=== PATIENT | female | born 1990 | race Caucasian/White ===

== ENCOUNTER 2022-06-07 08:05 | Outpatient (CLI) | payer OTHER, SELFPAY ==
[2022-06-07 20:09] LABS: Alanine Aminotransferase 18 U/L (6-35); Albumin Level 4.7 g/dL (3.5-5.1); Alkaline Phosphatase 47 U/L (38-126); Anion Gap 6 mmol/L (8-16); Aspartate Amino Transferase 30 U/L (14-36); Bilirubin,Total 0.8 mg/dL (0.2-1.3); Blood Urea Nitrogen 17 mg/dL (7-17); Calcium 8.9 mg/dL (8.4-10.2); Carbon Dioxide 30 mmol/L (22-30); Chloride 99 mmol/L (98-107); Estimated Glomerular Filt Rate > 60; Glucose 86 mg/dL (65-110); Sodium 135 mmol/L (137-145)
[2022-06-07 20:41] LABS: Basophils Absolute Auto 0.1 K/mm3 (0.0-0.1); Basophils Percent Auto 0.8 % (0.2-1.2); Eosinophils Percent Auto 0.6 % (0-4.4); Hematocrit 41.9 % (37.0-47.0); Hemoglobin 13.5 g/dL (12.0-15.0); Immature Granulocyte Absolute 0.02 K/mm3 (0.00-0.031); Immature Granulocyte Percent A 0.3 % (0-0.5); Lymphocytes Absolute Auto 2.28 K/mm3 (0.9-3.2); Mean Corpuscular HGB Conc 32.2 g/dl (32-36); Mean Corpuscular Hemoglobin 32.1 pg (26-34); Mean Corpuscular Volume 99.8 fl (80-100); Mean Platelet Volume 11.9 fl (7.4-10.4); Monocytes Absolute Auto 0.6 K/mm3 (0.1-0.6); Monocytes Percent Auto 9.5 % (2.6-8.5); Neutrophils Absolute Auto 3.3 K/mm3 (1.3-6.7); Neutrophils Percent Auto 52.8 % (45.5-73.1); Platelet Count Result 193 k/mm3 (150-375); Red Cell Distribution Width 12.4 % (11.5-14.5); White Blood Count 6.3 K/mm3 (4.5-10.0)
== END 2022-06-07 08:06 | disposition home or self-care (01) ==
LOC: ANHGOSHLAB 08:06
PROVIDERS: PCP Family Medicine; Visit Provider Family Medicine
DX: R53.83 Other fatigue (principal)
CPT/HCPCS: 36415; 80053; 84443; 85025

== ENCOUNTER 2024-07-16 07:56 | Outpatient (CLI) | payer BC, SELFPAY ==
--- OUTSIDE RECORDS SUMMARY | 2024-07-16 08:02 | XMS_ITS | Clinical Summary ---
Author Organization [facility] on Address [address] [place] [address] Care Team Providers Care Process Engineering Technician Name Role Phone Iain Braga MD Primary Care Provider [phone] Medications sertraline (ZOLOFT) 50 mg tablet Take 50 mg by mouth daily at bedtime. 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 Gender Identity Not on file Sexual Orientation Not on file Last Filed Vital Signs Vital Sign Reading Time Taken Comments Blood Pressure 118/79 05/22/2020 12:08 PM OPTICAL SYSTEMS ENGINEER Pulse 59 05/22/2020 12:08 PM OPTICAL SYSTEMS ENGINEER Temperature 36.8 C (98.3 F) 05/22/2020 12:08 PM OPTICAL SYSTEMS ENGINEER Respiratory Rate 18 05/22/2020 12:08 PM OPTICAL SYSTEMS ENGINEER Oxygen Saturation 90% 05/22/2020 12:08 PM OPTICAL SYSTEMS ENGINEER Inhaled Oxygen Concentration - - Weight 56.7 kg (125 lb) 05/22/2020 12:08 PM OPTICAL SYSTEMS ENGINEER Height 154.9 cm (5' 1 ) 05/22/2020 12:08 PM OPTICAL SYSTEMS ENGINEER Body Mass Index 23.62 05/22/2020 12:08 PM OPTICAL SYSTEMS ENGINEER Plan of Treatment Health Maintenance Due Date Last Done Comments DTAP/TDAP/TD VACCINES (1 - Tdap) 2009 HEPATITIS B VACCINES (1 of 3 - 19+ 3-dose series) 2009 PAP SMEAR 08/16/2011 CERVICAL CANCER SCREENING 2020 HPV/Cotest 2020 PAP SMEAR 2020 INFLUENZA VACCINE (#1) 2023 HPV VACCINES Aged Out No longer eligi ble based on patient's age to complete this topic PNEUMOCOCCAL VACCINE 0-49 YEARS Aged Out No longer eligible based on patient's age to complete this topic Insurance [id number] Care Teams Process Engineering Technician Relationship Specialty Start Date End Date Iain Braga MD PCP - General 05/22/20
--- OUTSIDE RECORDS SUMMARY | 2024-07-16 08:02 | XMS_ITS | Clinical Summary ---
Author Organization [facility] Address [address] [place] [address] Care Team Providers Care Configuration Manager Name Role Phone Fauzia Braga MD Primary Care Provider [phone] Source Comments [facility],non-owned Affiliates and Associated Physician Practices is amultiple site organization consisting of ambulatory clinics and hospital sitesin [place], [place], [place] and [place]. This disclosure is being madepursuant to the Care Everywhere program and may not contain all information available regarding this patient. Last updated 18.[facility] Allergies Active Allergy Reactions Criticality Noted Date Comments Amitriptyline Palpitations 01/17/2024 Medications * Be aware that medications may not be up to date on this document. Alwaysverify current medications with the patient. Medication Sig Dispensed Refills Start Date End Date Status sertraline (Zoloft) 25 MG tablet Take 1 (one) tablet by mouth once daily Active fish oil/omega-3 fatty acids (Promega;Cardi-Omeg a 3) 1000 MG capsule Take 2,400 mg by mouth 3 times daily with meals Active levonorgestrel (Mirena) 20 MCG/DAY IUD by Intrauterine route as directed Active OtherIndications:Ot her viral warts WARTPeel (5fu, sophie acid) in Remedium Delivery System Apply to affected area nightly using applicator. Occlude Wart with tape provided or bandaid, Wash hands after application. Remove the occlusion in the morning and wash area. 15 g 3 11/08/2023 Active albuterol HFA (Proventil; Ventolin; Proair) 108 (90 Base) MCG/ACT inhaler INHALE 1 PUFF EVERY 4 HOURS NEEDED FOR SHORTNESS OF BREATH OR WHEEZING. 12/04/2023 Active Social History Tobacco Use Types Packs/Day Years Used Date Smoking Tobacco: Never Smokeless Tobacco: Never Tobacco Cessation:Counseling Given: Not Answered Alcohol Use Standard Drinks/Week Comments Not Currently 0 (1 standard drink = 0.6 oz pur e alcohol) occasional Sex and Gender Information Value Date Recorded Sex Assigned at Not on file Gender Identity Not on file Sexual Orientation Not on file Plan of Treatment Health Maintenance Due Date Last Done Comments PAP SMEAR 1990 HIV SCREENING 2005 HEPATITIS C SCREENING 08/10/2008 DTAP/TDAP/TD VACCINES (1 - Tdap) 2009 HEPATITIS B VACCINE (1 of 3 - 19+ 3-dose series) 2009 COVID-19 VACCINE (1 - 2023-2 5 season) 2023 INFLUENZA VACCINE (#1) 2023 DEPRESSION SCREENING 04/22/2024 ZOSTER VACCINE (1 of 2) 2040 HIB VACCINE Aged Out No longer eligi ble based on patient's age to complete this topic HPV VACCINE Aged Out No longer eligi ble based on patient's age to complete this topic MENINGOCOCCAL (Group B) VACC INE SHARED DECISION-MAKING Aged Out No longer eligibl e based on patient's age to complete this topic MENINGOCOCCAL GROUPS A/C/Y/W VACCINE Aged Out No longer eligible b ased on patient's age to complete this topic PNEUMOCOCCAL VACCINE Aged Out No long er eligible based on patient's age to complete this topic Care Teams Configuration Manager Relationship Specialty Start Date End Date Fauzia Braga MD [address] [place] [address] PCP - General Family Medicine 11/08/23
== END 2024-07-16 07:57 | disposition home or self-care (01) ==
LOC: ANHAUDASC 07:57
PROVIDERS: PCP Family Medicine; Visit Provider Family Medicine
DX: H91.90 Unspecified hearing loss, unspecified ear (principal)
CPT/HCPCS: 92557; 92567